=== PATIENT | female | born 1995 | race Caucasian/White ===

== ENCOUNTER 2018-12-19 01:36 | Outpatient (CLI) | payer OTHER ==
[2018-12-19 02:59] LABS: APPEARANCE,URINE CLOUDY; BILIRUBIN,URINE NEGATIVE (NEGATIVE); COLOR,URINE YELLOW; GLUCOSE, URINE NEGATIVE (NEGATIVE); KETONES,URINE NEGATIVE (NEGATIVE); LEUKOCYTE ESTERASE,URINE NEGATIVE (NEGATIVE); NITRITE,URINE NEGATIVE (NEGATIVE); PROTEIN,URINE NEGATIVE (NEGATIVE); URINE SPECIFIC GRAVITY 1.013; UROBILINOGEN,URINE NEGATIVE mg/dL (<2.0)
[2018-12-19 03:20] LABS: URINE AMPHETAMINES SCREEN NEGATIVE; URINE BARBITURATES SCREEN NEGATIVE; URINE BENZODIAZEPINES SCREEN NEGATIVE; URINE COCAINE SCREEN NEGATIVE; URINE MARIJUANA (THC) SCREEN NEGATIVE; URINE METHADONE SCREEN NEGATIVE; URINE PHENCYCLIDINE SCREEN NEGATIVE
--- NOTE | 2018-12-19 03:55 | RADIOLOGY REPORT (SQ) ---
EXAM DESCRIPTION: US LIMITED COMPLETED DATE/TME: 12/19/2018 02:33 CLINICAL HISTORY: 23 years, Female, pre term labor COMPARISON: None. TECHNIQUE: Limited OB ultrasound LIMITATIONS: None. FINDINGS: Single, live intrauterine gestation in the vertex presentation. Amniotic fluid index is 9.3 cm. Heart tones obtained 141 bpm. Placenta posterior in location, grade 1 echotexture. Cervical length is 3 cm. Current ultrasound age is 29 weeks 4 days IMPRESSION: Single live IUP as above. Nonemergent follow-up recommended copyright 2010 [employer]- All Rights Reserved
[2018-12-19] MEDS ORDERED: NALBUPHINE HCL INJ 10 MG/1 ML AMPULE ONE (04:52)
== END 2018-12-19 05:33 | disposition home or self-care (01) ==
LOC: LC 01:36
PROVIDERS: ATTEND Obstetrics & Gynecology
DX: O60.03 Preterm labor without delivery, third trimester (principal); Z3A.29 29 weeks gestation of pregnancy
CPT/HCPCS: 81001; 80307; 84112; 76815; 59899; J2300

== ENCOUNTER 2019-01-21 01:17 | Emergency (ER) | payer OTHER ==
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
[2019-01-21 02:44] VITALS: BP 124/79
== END 2019-01-21 03:43 | disposition home or self-care (01) ==
LOC: ER 01:17
DX: S09.90XA Unspecified injury of head, initial encounter (principal); R51 Headache; V87.7XXA Person injured in collision between other specified motor vehicles (traffic), initial encounter
CPT/HCPCS: 99283

== ENCOUNTER 2019-01-21 02:49 | Outpatient (CLI) | payer OTHER ==
--- NOTE | 2019-01-21 03:39 | Non Stress Test Report ---
Non Stress Test Datetime Report Generated by CPN: 01/21/2019 03:39 DEMOGRAPHIC EGA NST: 33.6 INDICATION Indication for Study: Ordered by Provider Indication for Study (NST) Other: lc MONITORING Monitor Explained: Monitor Explained; Test Explained; Patient Verbalized Understanding Time on Monitor: 01/17/2019 07:30 Time off Monitor: 01/17/2019 09:00 NST Duration: 90 NST INTERVENTIONS NST Interventions: PO Hydration; Reposition Patient Physician Notified NST: K Cook CNM BABY A: [id number] BABY A Movement : Present Contraction Frequency : irr FHR Baseline : 130 Accelerations : 15X15 Decelerations : None Variability : Moderate 6-25bpm NST Review: Meets Criteria for Reactive NST NST Review and Verified By : emani Narvaez RN NST Results: Reactive NST REPORT Report Trigger: Send Report
--- NOTE | 2019-01-21 05:21 | RADIOLOGY REPORT (SQ) ---
EXAM DESCRIPTION: US LIMITED COMPLETED DATE/TME: 01/21/2019 03:52 CLINICAL HISTORY: 23 years, Female, WELL BEING, PLACENTA STATUS COMPARISON: 12/19/2018 TECHNIQUE: Transabdominal pelvic ultrasound LIMITATIONS: None. FINDINGS: A single live intrauterine is identified in the cephalic position. The heart rate measures 158 bpm. The PATSY is within normal limits and measures 12.6 cm. The placenta is posterior/fundal with no evidence of placenta previa or abruption. Biometry: BPD: 8.33 cm = 33 weeks 4 days. HC: 30.65 cm = 34 weeks 1 days. AC: 28.96 cm = 33 weeks 0 days. FL: 6.37 cm = 32 weeks 6 days. Ratios (%): FL/AC: 22.0 (20-24). FL/BPD: 76.5 (71-87). HC/AC: 1.06 (0.96-1.11). CI: 81.5 (70-86). EFW = 2124 grams. 27%ile by Hadlock. (Please note that an incorrect LMP could make the percentile value inaccurate.) Clinical: LMP: 05/25/2018. MA: 34 weeks three days. SAVITA: 03/01/2019. Ultrasound: MA: 33 weeks three days. SAVITA: 04/07/2019. IMPRESSION: Single live intrauterine , as described above. copyright 2010 [facility] [employer]- All Rights Reserved
== END 2019-01-21 05:20 | disposition home or self-care (01) ==
LOC: LC 02:49
PROVIDERS: ATTEND Student in an Organized Health Care Education/Training Program
PROC: 4A1HXCZ Monitoring of Products of Conception, Cardiac Rate, External Approach (ICD-10-PCS; principal; 2019-01-21)
DX: O26.893 Other specified pregnancy related conditions, third trimester (principal); Z3A.33 33 weeks gestation of pregnancy
CPT/HCPCS: 59025; 76815

== ENCOUNTER 2019-04-18 17:33 | Emergency (ER) | payer OTHER ==
--- NOTE | 2019-04-18 17:51 | ER Document Report ---
ED Medical Screen (RME) - General Chief Complaint: Vaginal Bleeding Stated Complaint: VAGINAL BLEEDING/PAIN Time Seen by Provider: 04/18/19 17:43 Mode of Arrival: Ambulatory Information source: Patient Notes: This 23-year-old female presents emergency department with complaints of lower abdominal pain vaginal bleeding that is very foul-smelling with clots and tissue. Reports she is approximately 2 months . She did have a follow-up visit at [facility]. She reports the symptoms started 1 week ago. Denies fever vomiting diarrhea. Denies pain with void. Reports she is on the Depo. I have greeted and performed a rapid initial assessment of this patient. A comprehensive ED assessment and evaluation of the patient, analysis of test results and completion of the medical decision making process will be conducted by additional ED providers. Dictation of this chart was performed using voice recognition software; therefore, there may be some unintended grammatical errors. TRAVEL OUTSIDE OF THE [place] IN LAST 30 DAYS: No - Related Data Allergies/Adverse Reactions: No Known Allergies Allergy (Unverified 01/17/19 05:42) Past Medical History Renal/ Medical History: Denies: Hx Peritoneal Dialysis Past Surgical History: Reports: Hx Section Physical Exam - Vital signs Vitals: Temp Pulse Resp BP Pulse Ox 98.2 F 108 H 16 119/79 99 04/18/19 17:39 04/18/19 17:39 04/18/19 17:39 04/18/19 17:39 04/18/19 17:39 Course - Vital Signs Vital signs: Temp Pulse Resp BP Pulse Ox 98.2 F 108 H 16 119/79 99 04/18/19 17:39 04/18/19 17:39 04/18/19 17:39 04/18/19 17:39 04/18/19 17:39
[2019-04-18 18:29] LABS: ABSOLUTE LYMPHOCYTES (AUTO) 0.8 10^3/uL (0.5-4.7); ABSOLUTE MONOCYTES (AUTO) 0.5 10^3/uL (0.1-1.4); ABSOLUTE NEUT (AUTO) 3.9 10^3/uL (1.7-8.2); BASOPHILS % (AUTO) 0.4 % (0-2); EOSINOPHILS % (AUTO) 0.8 % (0-6); HEMATOCRIT 39.6 % (36.0-47.0); LYMPHOCYTES % (AUTO) 15.3 % (13-45); MEAN CORPUSCULAR HGB CONC 35.2 g/dL (32.0-36.0); MEAN CORPUSCULAR VOLUME 97 fl (80-97); PLATELET COUNT 309 10^3/uL (150-450); RED BLOOD COUNT 4.11 10^6/uL (3.72-5.28); RED CELL DISTRIBUTION WIDTH 12.6 % (11.5-14.0); SEGMENTED NEUTROPHILS % (AUTO) 73.5 % (42-78); TOTAL CELLS COUNTED % (AUTO) 100 %; WHITE BLOOD COUNT 5.3 10^3/uL (4.0-10.5)
[2019-04-18 18:33] LABS: APPEARANCE,URINE SLIGHTLY-CLOUDY; BILIRUBIN,URINE NEGATIVE (NEGATIVE); COLOR,URINE YELLOW; GLUCOSE, URINE NEGATIVE (NEGATIVE); KETONES,URINE 20 mg/dL (NEGATIVE); LEUKOCYTE ESTERASE,URINE TRACE (NEGATIVE); NITRITE,URINE NEGATIVE (NEGATIVE); PROTEIN,URINE 100 mg/dL (NEGATIVE); URINE SPECIFIC GRAVITY 1.024; UROBILINOGEN,URINE NEGATIVE mg/dL (<2.0)
[2019-04-18 18:46] LABS: ALBUMIN 4.7 g/dL (3.5-5.0); ALKALINE PHOSPHATASE 76 U/L (38-126); ANION GAP 13 (5-19); ASPARTATE AMINO TRANSFERASE 26 U/L (14-36); BILIRUBIN,DIRECT 0.1 mg/dL (0.0-0.4); BILIRUBIN,TOTAL 0.8 mg/dL (0.2-1.3); BLOOD UREA NITROGEN 11 mg/dL (7-20); CALCIUM 9.8 mg/dL (8.4-10.2); CARBON DIOXIDE 21 mmol/L (22-30); CHLORIDE 105 mmol/L (98-107); GLUCOSE 91 mg/dL (75-110); POTASSIUM 4.2 mmol/L (3.6-5.0); TOTAL PROTEIN 7.4 g/dL (6.3-8.2)
--- NOTE | 2019-04-18 19:15 | ER Document Report ---
ED General - General Chief Complaint: Vaginal Bleeding Stated Complaint: VAGINAL BLEEDING/PAIN Time Seen by Provider: 04/18/19 17:43 Primary Care Provider: Emeka Zhao LIGHT ARMORED VEHICLE OFFICER [Provider Group] - Follow up in 3-5 days Mode of Arrival: Ambulatory Notes: Patient is a 23-year-old female that presents to the emergency department for chief complaint of vaginal bleeding, and discharge with odor. Patient states she is been having pelvic pain, vaginal bleeding for the past few days, noticing more clots than usual. She did deliver at the end of January, by , was doing quite well for the most part, but over the past week she has been having more vaginal and pelvic pain and bleeding so she decided come to the emergency department. She describes as a aching type pain in her pelvis as well as the vagina. She currently rates her pain as a 6 out of 10 describes as an aching sensation that is constant. Nothing seems to make it better or worse. She denies any dysuria, hematuria, nausea, vomiting or diarrhea. Past Medical History: Endometriosis Past Surgical History: Social History: Denies tobacco, alcohol or drug use. Family History: Reviewed and noncontributory for presenting illness Allergies: Reviewed, see documented allergy list. REVIEW OF SYSTEMS: Other than noted above, the 12 point review of systems was reviewed with the patient and were negative, all pertinent findings are included in the HPI. PHYSICAL EXAMINATION: Vital signs reviewed, nursing noted reviewed. GENERAL: Well-appearing, well-nourished and in no acute distress. HEAD: Atraumatic, normocephalic. EYES: Eyes appear normal, extraocular movements intact, sclera anicteric, conjunctiva are normal. ENT: nares patent, oropharynx clear without exudates. Moist mucous membranes. NECK: Normal range of motion, supple without lymphadenopathy LUNGS: Breath sounds clear to auscultation bilaterally and equal. No wheezes rales or rhonchi. HEART: Heart rate borderline tachycardic, regular rhythm. ABDOMEN: Soft, nontender, normoactive bowel sounds. No rebound, guarding, or rigidity. No masses appreciated. Patient's scar appears well-healed, no open areas or erythema or drainage. Female pelvic exam: Pelvic Exam: With a operations officer trust department present the exam was explained to the patient and patient agreed to proceed with exam. On exam, no external lesions or abnormalities noted. Internal speculum exam demonstrated normal appearing cervix without purulent discharge, there is only a small amount of blood noted in the vaginal vault and at the cervical loss no brisk bleeding. Swabs obtained. Bimanual exam was negative for adnexal tenderness, or palpable masses. EXTREMITIES: Nontender, good range of motion, no pitting or edema. NEUROLOGICAL: No focal neurological deficits. Moves all extremities spontaneously Motor and sensory grossly intact on exam. PSYCH: Normal mood, normal affect. SKIN: Warm, Dry, normal turgor, no rashes or lesions noted on exposed skin TRAVEL OUTSIDE OF THE [place] IN LAST 30 DAYS: No - Related Data Allergies/Adverse Reactions: No Known Allergies Allergy (Unverified 01/17/19 05:42) Past Medical History - General Information source: Patient - Social History Smoking Status: Unknown if Ever Smoked Chew tobacco use (# tins/day): No Frequency of alcohol use: None Drug Abuse: None Family History: Reviewed & Not Pertinent Patient has suicidal ideation: No Patient has homicidal ideation: No Renal/ Medical History: Denies: Hx Peritoneal Dialysis Psychiatric Medical History: Reports: Hx Depression - ANXIETY Past Surgical History: Reports: Hx Section - X 2 Physical Exam - Vital signs Vitals: Temp Pulse Resp BP Pulse Ox 98.2 F 108 H 16 119/79 99 04/18/19 17:39 04/18/19 17:39 04/18/19 17:39 04/18/19 17:39 04/18/19 17:39 Course - Re-evaluation Re-evalutation: Patient seen and examined vital signs reviewed. Laboratory data and/or imaging were ordered as appropriate for the patient's presenting symptoms and complaint, with consideration of any critical or life t hreatening conditions that may be associated with their obtained history and exam as noted above. Patient was treated with IM Toradol and Flagyl Results were reviewed when available and demonstrated unremarkable blood work, patient's pelvic swab and wet mount was consistent with pectoral vaginosis especially with the patient's clinical history The patient was re-evaluated and was stable Evaluation was most consistent with bacterial vaginosis, vaginal bleeding, will start the patient on Flagyl for a week, and advised follow-up with her L[employer] ARM[employer]ED VEHICLE OFFICER. Results were discussed with the patient at this point, after careful consideration I feel that that [facility], the patient was educated treatments and reasons to return to the emergency department based on their presumed diagnosis as noted above, they were advised to followup with a primary care physician in 2-3 days. Patient was agreeable to plan of care. *Note is created using voice recognition software and may contain spelling, syntax or grammatical errors. Laboratory 04/18/19 04/18/19 04/18/19 18:15 18:15 18:15 WBC 5.3 RBC 4.11 Hgb 14.0 Hct 39.6 MCV 97 MCH 34.0 H MCHC 35.2 RDW 12.6 Plt Count 309 Lymph % (Auto) 15.3 [place] % (Auto) 10.0 Eos % (Auto) 0.8 Baso % (Auto) 0.4 Absolute Neuts (auto) 3.9 Absolute Lymphs (auto) 0.8 Absolute Monos (auto) 0.5 Absolute Eos (auto) 0.0 Absolute Basos (auto) 0.0 Seg Neutrophils % 73.5 Sodium 139.2 Potassium 4.2 Chloride 105 Carbon Dioxide 21 L Anion Gap 13 BUN 11 Creatinine 0.84 Est GFR ( Amer) > 60 Est GFR (MDRD) Non-Af > 60 Glucose 91 Calcium 9.8 Total Bilirubin 0.8 Direct Bilirubin 0.1 Neonat Total Bilirubin Not Reportable Neonat Direct Bilirubin Not Reportable Neonat Indirect Bili Not Reportable AST 26 ALT 39 Alkaline Phosphatase 76 Total Protein 7.4 Albumin 4.7 Urine Color YELLOW Urine Appearance SLIGHTLY-CLOUDY Urine pH 5.0 Ur Specific [place] 1.024 Urine Protein 100 H Urine Glucose (UA) NEGATIVE Urine Ketones 20 H Urine Blood LARGE H Urine Nitrite NEGATIVE Urine Bilirubin NEGATIVE Urine Urobilinogen NEGATIVE Ur Leukocyte Esterase TRACE H Urine WBC (Auto) 12 Urine RBC (Auto) >182 Squamous Epi Cells Auto 1 Urine Mucus (Auto) FEW Urine Ascorbic Acid NEGATIVE Urine HCG, Qual NEGATIVE Bacteria (Wet Prep) Trichomonas (Wet Prep) Vaginal WBC Vaginal RBC Vaginal Yeast 04/18/19 19:44 WBC RBC Hgb Hct MCV MCH MCHC RDW Plt Count Lymph % (Auto) [place] % (Auto) Eos % (Auto) Baso % (Auto) Absolute Neuts (auto) Absolute Lymphs (auto) Absolute Monos (auto) Absolute Eos (auto) Absolute Basos (auto) Seg Neutrophils % Sodium Potassium Chloride Carbon Dioxide Anion Gap BUN Creatinine Est GFR ( Amer) Est GFR (MDRD) Non-Af Glucose Calcium Total Bilirubin Direct Bilirubin Neonat Total Bilirubin Neonat Direct Bilirubin Neonat Indirect Bili AST ALT Alkaline Phosphatase Total Protein Albumin Urine Color Urine Appearance Urine pH Ur Specific [place] Urine Protein Urine Glucose (UA) Urine Ketones Urine Blood Urine Nitrite Urine Bilirubin Urine Urobilinogen Ur Leukocyte Esterase Urine WBC (Auto) Urine RBC (Auto) Squamous Epi Cells Auto Urine Mucus (Auto) Urine Ascorbic Acid Urine HCG, Qual Bacteria (Wet Prep) 3+ BACTERIA SEEN Trichomonas (Wet Prep) NO TRICHOMONAS SEEN Vaginal WBC 1+ WBCS SEEN Vaginal RBC 4+ RBCS SEEN Vaginal Yeast NO YEAST SEEN Transvaginal US 04/18/19 17:49 IMPRESSION: 1.5 cm simple right ovarian cyst. No follow-up imaging is recommended. Reference: Radiology 2010 Feb;256(3):603-26 - Vital Signs Vital signs: Temp Pulse Resp BP Pulse Ox 97.9 F 88 15 121/75 100 04/18/19 21:47 04/18/19 21:47 04/18/19 21:47 04/18/19 21:47 04/18/19 21:47 - Laboratory Result Diagrams: 04/18/19 18:15 04/18/19 18:15 Laboratory results interpreted by me: 04/18/19 04/18/19 04/18/19 18:15 18:15 18:15 MCH 34.0 H Carbon Dioxide 21 L Urine Protein 100 H Urine Ketones 20 H Urine Blood LARGE H Ur Leukocyte Esterase TRACE H Discharge - Discharge Clinical Impression: Bacterial vaginosis, Vaginal bleeding Condition: Stable Disposition: HOME, SELF-CARE Instructions: Vaginosis, Bacterial ([facility]) Additional Instructions: Please complete the entire course of antibiotics as prescribed, and please follow-up with your LIGHT ARMORED VEHICLE OFFICER. If your pain and bleeding worsens, or if you develop lightheadedness, please return to the emergency department to be reevaluated. Prescriptions: Metronidazole [Flagyl 500 mg Tablet] 500 mg PO BID #14 tablet Referrals: Emeka Zhao L[employer] ARMORED VEHICLE OFFICER [Provider Group] - Follow up in 3-5 days
[2019-04-18] MEDS ORDERED: KETOROLAC TROMETHAMINE INJ/PF 30 MG/1 ML SDV IV ONE (19:26)
[2019-04-18] MEDS ORDERED: KETOROLAC TROMETHAMINE 60 MG/2 ML SDV IM ONE (19:40)
[2019-04-18 20:05] LABS: BACTERIA (WET MOUNT) 3+ BACTERIA SEEN; RBCS (WET MOUNT) 4+ RBCS SEEN; T.VAGINALIS (WET MOUNT) NO TRICHOMONAS SEEN; WBCS (WET MOUNT) 1+ WBCS SEEN; YEAST (WET MOUNT) NO YEAST SEEN
--- NOTE | 2019-04-18 21:29 | RADIOLOGY REPORT (SQ) ---
US PELVIS EXAM DATE: 04/18/2019 5:49 PM CDT HISTORY: Pelvic pain. COMPARISON: None. TECHNIQUE: Grayscale, color Doppler, and spectral Doppler ultrasound images of the pelvis were obtained. FINDINGS: The uterus is anteverted and measures 6.6 x 3.2 x 5.4 cm. The endometrium is 6 mm in thickness. Nabothian cysts are seen in the cervix. Both ovaries are normal in size and contain normal follicles, with the right ovary measuring 2.8 cm, and the left ovary measuring 2.8 cm. There is also a 1.5 cm dominant follicle/cyst in the right ovary. Normal color Doppler blood flow is seen in both ovaries. No free fluid. IMPRESSION: 1.5 cm simple right ovarian cyst. No follow-up imaging is recommended. Reference: Radiology 2010 Sep;256(1):943-39
[2019-04-18] MEDS ORDERED: AMOXICILLIN TR/POT CLAVULANATE 500-125 MG TAB PO ONE (21:33)
[2019-04-18] MEDS ORDERED: METRONIDAZOLE 500 MG TABLET PO ONE (21:34)
[2019-04-18 21:47] VITALS: BP 121/75
== END 2019-04-18 21:48 | disposition home or self-care (01) ==
LOC: ER 17:33
DX: N76.0 Acute vaginitis (principal); B96.89 Other specified bacterial agents as the cause of diseases classified elsewhere; N93.8 Other specified abnormal uterine and vaginal bleeding; N83.201 Unspecified ovarian cyst, right side; R10.2 Pelvic and perineal pain
CPT/HCPCS: 99284; 96374; 36415; 87210; 85025; 81025; 80053; 81001; 76830; 93976; J1885